=== PATIENT | male | born 1955 | race Caucasian/White ===

== ENCOUNTER 2024-01-21 11:30 | Outpatient (RCR) | payer MEDICARE, BC, SELFPAY | END 2024-02-27 06:53 | disposition home or self-care (01) | LOC: HO.CR 11:30 | PROVIDERS: Visit Provider Nurse Practitioner Family | DX: I25.10 Atherosclerotic heart disease of native coronary artery without angina pectoris (principal) | CPT/HCPCS: 93798 ==